=== PATIENT | female | born 1950 | race Caucasian/White ===

== ENCOUNTER 2018-11-18 12:06 | Emergency (ER) | payer OTHER ==
[~2018-11-18] VITALS: Ht 160 cm; Wt 130.4 kg
[~2018-11-18 12:06] MED LIST: COZ50 PO; LEVO0.114 PO; LOSA50TA66 PO; METF-350 PO; METF850T PO; [UNRECOGNIZED DRUG - CODE] PO
[2018-11-18 12:08] VITALS: BP 171/67
--- NOTE | 2018-11-18 12:11 | NUR ---
PT AMBULATES TO BED 8
--- NOTE | 2018-11-18 12:20 | NUR ---
Patient being evaluated by physician at bedside.
--- NOTE | 2018-11-18 12:29 | NUR ---
BIB FAMILY WITH C/O COUGH, SORE THROAT, DIFFICULTY SWALLOWING STARTED TODAY. UPON AUSCULTATION, LUNG SOUNDS CLEAR THROUGHOUT. THROUGH APPEARS RED, TONSILS SWOLLEN. PAIN STATED 8/10, DIFFICULT TO SWALLOW, SHARP PAIN. VSS; PATIENT POSITIONED FOR COMFORT; HOB ELEVATED; BEDRAILS UP X1; BED DOWN. ER MD MADE AWARE OF PT STATUS.
--- NOTE | 2018-11-18 13:10 | NUR ---
PATIENT RESTING AT THIS TIME; NO SIGNS OF DISTRESS.
[2018-11-18 13:30] VITALS: BP 167/71
--- NOTE | 2018-11-18 13:30 | NUR ---
Patient discharged with v/s stable. Written and verbal after care instructions given and explained. Patient alert, oriented and verbalized understanding of instructions. Ambulatory with steady gait. All questions addressed prior to discharge. ID band removed. Patient advised to follow up with PMD. Rx of PROMETHAZINE HYDROCHLORIDE 6.25MG, AMOXICILLIN 500MG AND TRAMADOL 50MG given. Patient educated on indication of medication including possible reaction and side effects. Opportunity to ask questions provided and answered.
== END 2018-11-18 13:30 | disposition home or self-care (01) ==
LOC: MED 12:06
DX: K12.2 Cellulitis and abscess of mouth (principal); E11.9 Type 2 diabetes mellitus without complications; I10 Essential (primary) hypertension; Z88.6 Allergy status to analgesic agent; Z88.5 Allergy status to narcotic agent; Z79.899 Other long term (current) drug therapy
CPT/HCPCS: 36415; 87081; 87804; 99283

== ENCOUNTER 2019-01-12 13:33 | Emergency (ER) | payer OTHER ==
[~2019-01-12] VITALS: Ht 160 cm; Wt 126.6 kg
[2019-01-12 13:58] VITALS: BP 148/78
--- NOTE | 2019-01-12 14:36 | NUR ---
PATIENT TAKEN TO ER BED 6 BY WHEELCHAIR
--- NOTE | 2019-01-12 14:40 | NUR ---
68Y/F BIB WITH C/O RIGHT FOOT PAIN SWELLING S/P FULL CONDITIONER BOTTLE FELL ONTO FOOT X 6 DAYS AGO, PT IS UNABLE TO BEAR WEIGHT, WHEELCHAIR ASSISTED TO BED, + BRUSING, + SWELLING, + REDNESS, < 3 CAP REFILL, FOOT ELEVATED AT THIS TIME, BED LOW, LOCKED, BEDRAIL UP X 1, ER MD AWARE AND NOTIFIED OF PT STATUS. HX: DM, HTN, THYROID, ARTHRITIS RX:METFORMIN, HCTZ, LEVOTHYROXINE, SIMVASTATIN
[2019-01-12] MEDS ORDERED: fentaNYL 0.05 MG/ML VIAL IM ONE (15:35)
[2019-01-12] MEDS ORDERED: CLINDAMYCIN 150 MG CAP PO ONE (15:35)
--- NOTE | 2019-01-12 16:12 | NUR ---
PT ACCEPTED CARLOS WRAP TO HER RIGHT ANKLE BUT DID NOT WANT CRUTCHES.
--- NOTE | 2019-01-12 16:23 | NUR ---
DR. SONG PRESCRIBE NORCO TO PT AND WAS ALREADY TOLD PT WAS ALLERGIC
[2019-01-12 16:26] VITALS: BP 134/73
--- NOTE | 2019-01-12 16:26 | NUR ---
Patient discharged with v/s stable. Written and verbal after care instructions given and explained. Patient alert, oriented and verbalized understanding of instructions. Ambulatory with steady gait. All questions addressed prior to discharge. ID band removed. Patient advised to follow up with PMD. Rx of norco and bactrium given. Patient educated on indication of medication including possible reaction and side effects. Opportunity to ask questions provided and answered.
== END 2019-01-12 16:26 | disposition home or self-care (01) ==
LOC: MED 13:33
DX: S97.81XA Crushing injury of right foot, initial encounter (principal); E11.9 Type 2 diabetes mellitus without complications; I10 Essential (primary) hypertension; E07.9 Disorder of thyroid, unspecified; Z79.84 Long term (current) use of oral hypoglycemic drugs; Z79.899 Other long term (current) drug therapy; Z88.5 Allergy status to narcotic agent; Z88.8 Allergy status to other drugs, medicaments and biological substances; W23.0XXA Caught, crushed, jammed, or pinched between moving objects, initial encounter; Y93.89 Activity, other specified; Y92.89 Other specified places as the place of occurrence of the external cause; Y99.8 Other external cause status
CPT/HCPCS: 73630; 96372; 99283; J3010

== ENCOUNTER 2019-02-04 18:24 | Emergency (ER) | payer OTHER ==
[~2019-02-04] VITALS: Ht 160 cm; Wt 131.5 kg
[2019-02-04 18:36] VITALS: BP 123/72
--- NOTE | 2019-02-04 19:18 | NUR ---
PT TRANSFERRED TO BED 11 VIA WHEELCHAIR.
--- NOTE | 2019-02-04 19:40 | NUR ---
DR. BUSTAMANTE AT BEDSIDE FOR EVALUATION.
[2019-02-04] MEDS ORDERED: traMADol 50 MG TAB PO ONE (20:05)
--- NOTE | 2019-02-04 20:15 | NUR ---
PT BIB C/O LEFT HIP PAIN. PT STATES SHE DROPPED A CAN ON HER RIGHT FOOT X1 MONTH AGO, IS CURRENTLY WEARING A BOOT. PT STATES SHE TRIPPED AND FELL ON HER LEFT HIP ON MONDAY. PT STATES 10/10 HIP PAIN, RADIATES THROUGTH BODY. DENIES TRAUMA TO HEAD, N/V/D, LOC, CP, OR SOB. AAOX4. EDEMA TO RIGHT FOOT, +1 PITTING, +ECHYMOSIS, PASSIVE ROM. LEFT HIP; NO REDNESS OR SWELLING AT THIS TIME, PASSIVE ROM. PEDIAL PULSES WNL, BL. PMH: DM, HTN
[2019-02-04 21:03] VITALS: BP 123/72
--- NOTE | 2019-02-04 21:03 | NUR ---
Patient discharged with v/s stable. Written and verbal after care instructions given and explained. Patient alert, oriented and verbalized understanding of instructions. Ambulatory with steady gait. All questions addressed prior to discharge. ID band removed. Patient advised to follow up with PMD. Rx of TRAMADOL, ROBAXIN WAS given. Patient educated on indication of medication including possible reaction and side effects. Opportunity to ask questions provided and answered.
== END 2019-02-04 21:03 | disposition home or self-care (01) ==
LOC: MED 18:24
DX: S90.31XA Contusion of right foot, initial encounter (principal); M54.40 Lumbago with sciatica, unspecified side; I10 Essential (primary) hypertension; E11.9 Type 2 diabetes mellitus without complications; E78.5 Hyperlipidemia, unspecified; Z88.6 Allergy status to analgesic agent; Z79.84 Long term (current) use of oral hypoglycemic drugs; Z79.899 Other long term (current) drug therapy; W20.8XXA Other cause of strike by thrown, projected or falling object, initial encounter; Y93.89 Activity, other specified; Y92.89 Other specified places as the place of occurrence of the external cause; Y99.8 Other external cause status
CPT/HCPCS: 72100; 73502; 99283

== ENCOUNTER 2019-06-04 09:18 | Emergency (ER) | payer OTHER ==
[~2019-06-04] VITALS: Ht 160 cm; Wt 127.0 kg
[2019-06-04 09:24] VITALS: BP 146/78
--- NOTE | 2019-06-04 09:34 | NUR ---
PATIENT WHEELCHAIR ASSISTED TO BED 2.
--- NOTE | 2019-06-04 09:35 | NUR ---
PATIENT PRESENTS TO ED WITH C/O BLOOD IN URINE AND LLQ "PRESSURE" ABDOMINAL PAIN X YESTERDAY. DENIES N/V/D. DENIES URINARY FREQUENCY/URGENCY/DRIBBLING. HX: KIDNEY STONES, HYSTERECTOMY, LAP BAND, HTN, DIABETES, HYPOTHYROID .PATIENT STATES PAIN OF 9/10 AT THIS TIME; VSS; PATIENT POSITIONED FOR COMFORT; HOB ELEVATED; BEDRAILS UP X2; BED DOWN. ER MD MADE AWARE OF PT STATUS.
[2019-06-04] MEDS ORDERED: LEVO0.124 PO (09:39)
[2019-06-04] MEDS ORDERED: METF500T PO (09:39)
[2019-06-04] MEDS ORDERED: PIOGLITAZONE PO (09:39)
[2019-06-04] MEDS ORDERED: SIMV20TA6 PO (09:41)
[2019-06-04] MEDS ORDERED: LOSA50TA66 PO (09:42)
--- NOTE | 2019-06-04 09:43 | NUR ---
Patient being evaluated by physician at bedside.
[2019-06-04] MEDS ORDERED: NACL 0.9% 1,000 ML IV ONE (09:50)
--- NOTE | 2019-06-04 09:57 | NUR ---
OFF UNIT FOR CT.
[2019-06-04] MEDS ORDERED: CYAN250013 PO (10:10)
[2019-06-04] MEDS ORDERED: VITD1000 PO (10:10)
[2019-06-04] MEDS ORDERED: TRAM50TA1 PO (10:10)
[2019-06-04] MEDS ORDERED: ORE25 PO (10:10)
[2019-06-04] MEDS ORDERED: LID5T TP (10:10)
--- NOTE | 2019-06-04 10:14 | NUR ---
PT IS BACK TO UNIT FROM CT, INSERTED IV LINE TO LEFT FOREARM, STARTED NS BOLUS, PT TOLERATED WELL.
[2019-06-04 10:21] LABS: BASOPHILS % (AUTO) 0.4 % (0.0-2.0); EOSINOPHILS # (AUTO) 0.3 K/uL (0-0.4); EOSINOPHILS % (AUTO) 4.1 % (0.0-4.0); HEMATOCRIT 37.7 % (36-48); HEMOGLOBIN 12.5 g/dL (12.0-16.0); LYMPHOCYTES # (AUTO) 1.6 K/uL (2.5-16.5); LYMPHOCYTES % (AUTO) 25.8 % (20.5-51.1); MEAN CORPUSCULAR HEMOGLOBIN 30 pg (27-31); MEAN CORPUSCULAR HGB CONC 33 g/dL (33-37); MEAN CORPUSCULAR VOLUME 90.1 fL (80-94); MONOCYTES # (AUTO) 0.3 K/uL (0.8-1.0); MONOCYTES % (AUTO) 5.4 % (1.7-9.3); NEUTROPHILS % (AUTO) 64.3 % (42.2-75.2); PLATELET COUNT (AUTO) 105 K/uL (140-450); RED BLOOD CELL COUNT(AUTO) 4.18 MIL/uL (4.20-5.40); RED CELL DISTRIBUTION WIDTH 13.7 % (11.6-13.7); WHITE BLOOD COUNT (AUTO) 6.2 K/uL (4.8-10.8)
[2019-06-04 10:28] LABS: ANION GAP 12.3 (8-16); CARBON DIOXIDE 26.4 mmol/L (21-32); CREATININE 1.1 mg/dL (0.6-1.3); POTASSIUM 3.7 mmol/L (3.5-5.1)
[2019-06-04 10:36] LABS: ALBUMIN 2.7 g/dL (3.4-5.0)
[2019-06-04 10:46] LABS: APPEARANCE,URINE CLOUDY (CLEAR); BILIRUBIN,URINE NEGATIVE (NEGATIVE); BLOOD, URINE 3+ (NEGATIVE); LEUKOCYTE ESTERASE ,URINE NEGATIVE (NEGATIVE); NITRITE, URINE NEGATIVE (NEGATIVE); UGLUCOSE 2+ (NEGATIVE)
[2019-06-04 10:52] LABS: COLOR,URINE AMBER (YELLOW)
[2019-06-04 10:53] LABS: RBC,URINE TOO NUMEROUS TO COUN /HPF (0-5); WBC,URINE NONE SEEN /HPF (0-5)
[2019-06-04] MEDS ORDERED: MORPHINE SULFATE 4 MG/ML SYR IVP ONE (10:55)
[2019-06-04] MEDS ORDERED: ONDANSETRON 4 MG/2 ML VIAL IVP ONE (10:55)
[2019-06-04 11:54] VITALS: BP 136/72
--- NOTE | 2019-06-04 11:54 | NUR ---
Patient discharged with v/s stable. Written and verbal after care instructions given and explained. IV SITE REMOVED. ID band removed. Rx of CEPHALEXIN, FLOMAX, TYLENOL WITH CODEINE given. Patient educated on indication of medication including possible reaction and side effects. Patient advised to follow up with PMD.
== END 2019-06-04 11:54 | disposition home or self-care (01) ==
LOC: MED 09:18
DX: R31.9 Hematuria, unspecified (principal); I10 Essential (primary) hypertension; E11.9 Type 2 diabetes mellitus without complications; Z88.6 Allergy status to analgesic agent; Z79.84 Long term (current) use of oral hypoglycemic drugs; Z79.899 Other long term (current) drug therapy; Z90.49 Acquired absence of other specified parts of digestive tract; Z90.710 Acquired absence of both cervix and uterus
CPT/HCPCS: 36415; 74176; 80053; 81001; 82948; 85025; 87086; 96374; 96375; 99284; J2270; J2405; J7030

== ENCOUNTER 2019-06-06 20:58 | Emergency (ER) | payer OTHER ==
[~2019-06-06] VITALS: Ht 160 cm; Wt 131.5 kg
[~2019-06-06 20:58] MED LIST changes: +CYAN250013 PO; +LEVO0.124 PO; +LID5T TP; +METF500T PO; +ORE25 PO; +PIOGLITAZONE PO; +SIMV20TA6 PO; +TRAM50TA1 PO; +VITD1000 PO
[2019-06-06 21:00] VITALS: BP 128/75
--- NOTE | 2019-06-06 21:00 | NUR ---
PATIENT BIB W/C TO ER BED 6.
--- NOTE | 2019-06-06 21:23 | NUR ---
68/F PRESENTS TO ED WITH FAMILY, C/O R HAND PAIN, S/P GETTING R HAND STUCK ON UNIT SECY 4 HRS AGO. R HAND SKIN INTACT PINK AND WARM, WITH SWELLING AND MILD BRUISING, CAP REFILL<3S, +SENSATION, DECREASED ROM DUE TO PAIN. AOX4, RR EVEN AND UNLABORED. HX DM, HYPOTHYROID, HTN
--- NOTE | 2019-06-06 21:24 | NUR ---
XRAY AT BEDSIDE FOR INTERVENTION.
--- NOTE | 2019-06-06 22:25 | NUR ---
Alice giang in [facility] - 06/06/[address] ZUNIGA AT [facility] FOR L HAND LAC REPAIR
--- NOTE | 2019-06-06 23:41 | NUR ---
PT LAYING IN BED, RR EVEN AND UNLABORED. REPORTS 4/10 R HAND PAIN. VSS. ALL NEEDS MET.
--- NOTE | 2019-06-06 23:41 | NUR ---
DR ZUNIGA AT BEDSIDE
--- NOTE | 2019-06-06 23:45 | NUR ---
PT R HAND WRAPPED IN CARLOS WRAP FOR COMFORT.
[2019-06-06 23:48] VITALS: BP 132/70
--- NOTE | 2019-06-06 23:48 | NUR ---
Patient discharged with v/s stable. Written and verbal after care instructions given and explained. Patient verbalized understanding. Ambulatory with steady gait, assisted by pt's to wheelchair to car. All questions addressed prior to discharge. Advised to follow up with PMD.
== END 2019-06-06 23:48 | disposition home or self-care (01) ==
LOC: MED 20:58
DX: S60.221A Contusion of right hand, initial encounter (principal); E11.9 Type 2 diabetes mellitus without complications; I10 Essential (primary) hypertension; E03.9 Hypothyroidism, unspecified; Z90.710 Acquired absence of both cervix and uterus; Z88.5 Allergy status to narcotic agent; Z88.6 Allergy status to analgesic agent; Z79.899 Other long term (current) drug therapy; Z79.84 Long term (current) use of oral hypoglycemic drugs; W23.1XXA Caught, crushed, jammed, or pinched between stationary objects, initial encounter; Y93.89 Activity, other specified; Y92.89 Other specified places as the place of occurrence of the external cause; Y99.8 Other external cause status
CPT/HCPCS: 73130; 99283; Q0092

== ENCOUNTER 2019-08-24 09:42 | Emergency (ER) | payer OTHER ==
[~2019-08-24] VITALS: Ht 160 cm; Wt 131.5 kg
[~2019-08-24 09:42] MED LIST changes: -COZ50 PO; -LEVO0.114 PO; -METF-350 PO; -METF850T PO; -[UNRECOGNIZED DRUG - CODE] PO
[2019-08-24 10:04] VITALS: BP 112/71
--- NOTE | 2019-08-24 10:15 | NUR ---
Alice giang in ED - 08/24/19 at 1027 by MMTHEM Patient ambulated to bed 10. RN evaluating patient at bedside.
--- NOTE | 2019-08-24 10:15 | NUR ---
Patient transferred to bed 10 via wheelchair, accompanied by family.
--- NOTE | 2019-08-24 10:24 | NUR ---
Dr. Patterson evaluating patient at bedside.
--- NOTE | 2019-08-24 10:30 | NUR ---
C/O BILATERAL LEG PAIN X3 WEEKS. PATIENT STATES PAIN OF 10/10 AT THIS TIME; VSS; PATIENT POSITIONED FOR COMFORT IN HER WHEELCHAIR; ER MD MADE AWARE OF PT STATUS.
--- NOTE | 2019-08-24 10:47 | NUR ---
Note claireone in EDM - 08/24/19 at 1048 by MED C/O BILATERAL LEG PAIN X3 WEEKS. PATIENT STATES PAIN OF 10/10 AT THIS TIME; VSS; PATIENT POSITIONED FOR COMFORT IN HER WHEELCHAIR; SANJU BISWAS MADE AWARE OF PT STATUS.
[2019-08-24 11:07] VITALS: BP 111/70
--- NOTE | 2019-08-24 11:07 | NUR ---
Patient discharged with v/s stable. Written and verbal after care instructions given and explained. Patient alert, oriented and verbalized understanding of instructions. Wheel Chair Assisted with to car BY FAMILY MEMBER. All questions addressed prior to discharge. ID band removed. Patient advised to follow up with PMD. Rx of VALIUM given. Patient educated on indication of medication including possible reaction and side effects. Opportunity to ask questions provided and answered.
== END 2019-08-24 11:07 | disposition home or self-care (01) ==
LOC: MED 09:42
DX: G89.29 Other chronic pain (principal); M25.562 Pain in left knee; E11.9 Type 2 diabetes mellitus without complications; I10 Essential (primary) hypertension; Z88.5 Allergy status to narcotic agent; Z88.8 Allergy status to other drugs, medicaments and biological substances; Z79.899 Other long term (current) drug therapy; Z79.84 Long term (current) use of oral hypoglycemic drugs
CPT/HCPCS: 99283

== ENCOUNTER 2020-02-04 22:29 | Emergency (ER) | payer OTHER ==
[~2020-02-04] VITALS: Ht 160 cm; Wt 127.0 kg
[2020-02-04 22:29] VITALS: BP 144/65
[~2020-02-04 22:29] MED LIST changes: +SIMV-30 PO; -SIMV20TA6 PO
--- NOTE | 2020-02-04 22:48 | NUR ---
Dr. Romano at bedside.
--- NOTE | 2020-02-04 22:48 | NUR ---
BIB family reports falling at home and catching herself with her left arm. +cms of arm wrist and shoulder with increased pain when moving. swelling seen to top of the right hand and tenderness reported on hand, wrist and elbow. Patient states no head injury or anywhere else. No other symptoms reported. AAO. Sitting up in bed.
[2020-02-04] MEDS ORDERED: fentaNYL 0.05 MG/ML VIAL IM ONE (22:50)
--- NOTE | 2020-02-04 22:54 | NUR ---
xray at bedside.
[2020-02-04 23:57] VITALS: BP 144/65
--- NOTE | 2020-02-04 23:57 | NUR ---
Patient discharged with v/s stable. Written and verbal after care instructions given and explained. Patient alert, oriented and verbalized understanding of instructions. wheelchair with to car. All questions addressed prior to discharge. ID band removed. Patient advised to follow up with PMD. Rx of naprosyn given. Patient educated on indication of medication including possible reaction and side effects. Opportunity to ask questions provided and answered.
== END 2020-02-04 23:57 | disposition home or self-care (01) ==
LOC: MED 22:29
DX: S53.402A Unspecified sprain of left elbow, initial encounter (principal); S63.502A Unspecified sprain of left wrist, initial encounter; E11.9 Type 2 diabetes mellitus without complications; I10 Essential (primary) hypertension; Z98.890 Other specified postprocedural states; Z90.710 Acquired absence of both cervix and uterus; Z79.84 Long term (current) use of oral hypoglycemic drugs; Z79.899 Other long term (current) drug therapy; Z88.5 Allergy status to narcotic agent; Z88.8 Allergy status to other drugs, medicaments and biological substances; W01.0XXA Fall on same level from slipping, tripping and stumbling without subsequent striking against object, initial encounter; Y93.89 Activity, other specified; Y92.89 Other specified places as the place of occurrence of the external cause; Y99.8 Other external cause status
CPT/HCPCS: 73080; 73110; 96372; 99284; J3010; Q0092

== ENCOUNTER 2020-10-21 22:28 | Observation (INO) | payer OTHER, SELFPAY ==
[~2020-10-21] VITALS: Ht 160 cm; Wt 136.1 kg
[2020-10-21 22:46] VITALS: BP 154/78
--- NOTE | 2020-10-21 22:58 | NUR ---
PT WAS W/C OUT TO THE LOBBY BY HER UNTIL A BED IN THE ER BECOMES AVAILABLE. PT IS NOT IN ACUTE DISTRESS. VSS.
--- NOTE | 2020-10-22 00:15 | NUR ---
PT BROUGHT TO [facility] FOR LAB DRAW
[2020-10-22 00:39] LABS: BASOPHILS % (AUTO) 0.4 % (0.0-2.0); EOSINOPHILS # (AUTO) 0.2 K/uL (0-0.4); EOSINOPHILS % (AUTO) 3.4 % (0.0-4.0); HEMATOCRIT 39.1 % (36-48); LYMPHOCYTES # (AUTO) 1.5 K/uL (2.5-16.5); LYMPHOCYTES % (AUTO) 20.4 % (20.5-51.1); MEAN CORPUSCULAR HEMOGLOBIN 30 pg (27-31); MEAN CORPUSCULAR HGB CONC 33 g/dL (33-37); MEAN CORPUSCULAR VOLUME 90.4 fL (80-94); MONOCYTES # (AUTO) 0.5 K/uL (0.8-1.0); MONOCYTES % (AUTO) 7.5 % (1.7-9.3); NEUTROPHILS # (AUTO) 4.9 K/uL (1.8-7.7); NEUTROPHILS % (AUTO) 68.3 % (42.2-75.2); PLATELET COUNT (AUTO) 106 K/uL (140-450); RED BLOOD CELL COUNT(AUTO) 4.32 MIL/uL (4.20-5.40); RED CELL DISTRIBUTION WIDTH 14.6 % (11.6-13.7); WHITE BLOOD COUNT (AUTO) 7.1 K/uL (4.8-10.8)
--- NOTE | 2020-10-22 00:50 | NUR ---
PT TAKEN TO ER BED 3 W/ STEADY GAIT.
--- NOTE | 2020-10-22 00:50 | NUR ---
Alice giang in ED - 10/22/20 at 0053 by BABITA PT TAKEN TO ER BED 3 W/ STEADY GAIT.
--- NOTE | 2020-10-22 00:50 | NUR ---
PT TAKEN TO ER BED 3 VIA W/C
[2020-10-22 00:58] LABS: ALBUMIN 3.2 g/dL (3.4-5.0); CARBON DIOXIDE 26.9 mmol/L (21-32); CREATININE 1.8 mg/dL (0.6-1.3); POTASSIUM 3.9 mmol/L (3.5-5.1); TOTAL BILIRUBIN 1.4 mg/dL (0.0-1.0)
--- NOTE | 2020-10-22 00:58 | NUR ---
70 Y/O FEMALE BIB SELF WITH C/O 09/05 "SHARP" NON-RADIATING LOWER ABD/MID-LINE PELVIC PAIN. PT ALSO REPORTS BLOOD ON URINATION THAT STARTED ON MONDAY WITH A "SMALL AMOUNT" ON URINATION. REPORTS SHE HAD NO URINATION ON MONDAY OR MONDAY BUT REPORTS HAVING HEAVY BLEEDING THIS EVENING THAT BEGAN AT 2100. ABDOMEN WAS ROUND, SOFT AND NON-TENDER. BOWEL SOUNDS WERE ACTIVE X 4 QUADRANTS. SECONDARY C/O CANS FALLING ON L LEG THIS MORNING. DENIES HAVING ANY PAIN AT THIS TIME. BUT REPORTED HAVING MINOR PAIN AT SITE THIS MORNING. REPORTS NOT TAKING ANY OTC MEDS FOR PAIN. BED WAS LOCKED AND PLACED IN LOWEST POSITION. HOB WAS ELEVATED FOR COMFORT. PHMX: HYSTERECTOMY, DM TYPE 2, HTN, KIDNEY STONES, ROTATOR CUFF REPAIR ALLERGIES: LISINOPRIL, OXYCODONE, HYDRO-CODONE, AND RASBERRIES.
[2020-10-22 01:28] LABS: APPEARANCE,URINE CLOUDY (CLEAR); BILIRUBIN,URINE NEGATIVE (NEGATIVE); BLOOD, URINE 3+ (NEGATIVE); COLOR,URINE ORANGE (YELLOW); LEUKOCYTE ESTERASE ,URINE TRACE (NEGATIVE); NITRITE, URINE NEGATIVE (NEGATIVE); UGLUCOSE 3+ (NEGATIVE)
--- NOTE | 2020-10-22 01:30 | NUR ---
SANJU BISWAS AT BEDSIDE EVALUATING PT.
[2020-10-22 02:13] LABS: RBC,URINE TOO NUMEROUS TO COUN /HPF (0-5)
[2020-10-22 02:14] LABS: WBC,URINE 0-5 /HPF (0-5)
[2020-10-22] MEDS ORDERED: NACL 0.9% 1,000 ML IV ONE (02:15)
[2020-10-22] MEDS ORDERED: cefTRIAXone 1,000 MG VIAL ONE (02:19)
--- NOTE | 2020-10-22 02:22 | NUR ---
SANJU BISWAS AT BEDSIDE RE-EVALUATING PT.
--- NOTE | 2020-10-22 02:44 | NUR ---
IV SITE ESTABLISHED TO R FOREARM 20 G SITE WAS PATENT. FLUSHED WITH 10 ML OF 0.9% NS, NO INFILTRATION, REDNESS OR SWELLING NOTED.
--- NOTE | 2020-10-22 04:32 | NUR ---
LABS WERE DRAWN AND SENT TO LAB.
--- NOTE | 2020-10-22 04:33 | NUR ---
PT LAYING IN BED, IN NO ACUTE DISTRESS NOTED. RESPIRATIONS WERE EVEN AND UNLABORED. NO C/O PAIN OR DISCOMFORT AT THIS TIME. IVF FLUIDS FINISHED. CONTINUES ON CARDIAC, BP AND PULSE OXIMETRY MONITORING. PT WAS ASSISTED TO A COMFORTABLE POSITION FOR COMFORT. BED LOCKED AND PLACED IN LOWEST POSITION.
[2020-10-22 04:45] LABS: ANION GAP 13.5 (8-16); CARBON DIOXIDE 26.1 mmol/L (21-32); CREATININE 1.7 mg/dL (0.6-1.3); POTASSIUM 3.6 mmol/L (3.5-5.1)
--- NOTE | 2020-10-22 05:43 | NUR ---
PT WOULD LIKE AN UPDATE - HE WAS MADE AWARE THAT THE PT WILL BE ADMITTED AT THIS TIME BUT WOULD LIKE MORE INFORMATION. KARYN CORNEJO () [phone]
--- NOTE | 2020-10-22 06:00 | NUR ---
PROVIDED KARYN CORNEJO WITH AN UPDATE ON PTS CONDITION WITH PT'S VERBAL CONSENT TO REALESE ALL INFORMATION TO (KARYN CORNEJO).
--- NOTE | 2020-10-22 07:19 | NUR ---
Gave report to Loreto VARGAS for continuity of care.
--- NOTE | 2020-10-22 07:21 | NUR ---
TRANSFER OF CARE AT THIS TIME FORM SAM JHA
--- NOTE | 2020-10-22 07:31 | NUR ---
VS WNL, ALL NEEDS MET AT THIS TIME.
[2020-10-22] MEDS ORDERED: ACETAMINOPHEN 325 MG TAB PO PRN (08:25)
[2020-10-22] MEDS ORDERED: DEXTROSE 50% 50 ML SYR IVP PRN (08:25)
[2020-10-22] MEDS: NACL 0.9% 1,000 ML IV SCH ×2 (08:41→18:31)
--- NOTE | 2020-10-22 08:59 | NUR ---
CALLED SAM SOTELO FOR REPORT, NO ANSWER.
--- NOTE | 2020-10-22 09:07 | NUR ---
CALLED ASHLEIGH AT EXT [phone] TO GIVE REPORT.
--- NOTE | 2020-10-22 09:16 | NUR ---
Patient will be admitted to care of DR. MUIR. Admited to Med/Surg. Will go to room 105B. Belongings list completed. Report to SAM SOTELO.
[2020-10-22 09:30] VITALS: BP 142/67
--- NOTE | 2020-10-22 09:35 | NUR ---
RECEIVED REPORT FROM ED NURSE, NIEVES. PATIENT ARRIVED TO UNIT VIA PT WHEELCHAIR. PATIENT AWAKE, ALERT, ORIENTED X4. RESP EVEN AND UNLABORED ON ROOM AIR. DENIED OF PAIN AT THIS TIME. LUNGS CLEAR. SKIN WARM TO TOUCH AND INTACT. R UPPER FOREARM 20G INTACT AND PATENT, INFUSING NS 100 ML/HR. PATIENT ABLE TO AMBULATE TO THE BATHROOM WITH STANDBY ASSIST AND STEADY GAIT. PATIENT ENCOURAGED TO USE CALL LIGHT NEEDED FOR ASSIST. DX WITH VERONIKA AND HEMATURIA. PATIENT STATED VERY LITTLE OF BLOOD NOTED IN THE URINE EARLIER. MRSA COLLECTED. PATIENT WANTS PNEUMO AND FLU VACC PRIOR TO D/C. PLAN OF CARE DISCUSSED WITH PATIENT. PATIENT VERBALIZED UNDERSTANDING. CALL LIGHT WITHIN REACH. WILL CONTINUE TO MONITOR.
[2020-10-22 11:02] LABS: PROTHROMBIN TIME 10.7 secs (10.8-13.4)
--- NOTE | 2020-10-22 11:10 | NUR ---
PATIENT IN BED RESTING. AWAKE AND ALERT. DENIED OF PAIN OR ANY SOB AT THIS TIME. CALL LIGHT WITHIN REACH. WILL CONTINUE TO MONITOR.
[2020-10-22] MEDS: BLOOD GLUCOSE MONITORING 1 DEV DEV FS SCH ×3 (12:18→20:42)
--- NOTE | 2020-10-22 15:09 | NUR ---
PATIENT WENT TO RAD FOR CT ABD/PELVIS. PATIENT LEFT IN STABLE CONDITION.
--- NOTE | 2020-10-22 15:18 | NUR ---
PATIENT CAME BACK FROM CT IN GOOD SPIRIT. ABLE TO MAKE NEEDS KNOWN. ASSISTED PATIENT TO THE BATHROOM. NO REPORT OF ANY BLOOD IN THE URINE. URINE IS YELLOW AND CLEAR. DENIED OF PAIN AT THIS TIME. RESP EVEN AND UNLABORED ON ROOM AIR. CALL LIGHT WITHIN REACH. WILL CONTINUE TO MONITOR.
[2020-10-22 16:00] VITALS: BP 138/51
--- NOTE | 2020-10-22 16:54 | NUR ---
PATIENT AWAKE AND ALERT IN BED KNITTING A SCARF. PATIENT IN GOOD SPIRIT. DENIED OF ANY MORE BLOOD IN THE URINE. NO NOTED DISTRESS AT THIS TIME. CALL LIGHT WITHIN REACH. WILL CONTINUE TO MONITOR.
--- NOTE | 2020-10-22 17:58 | NUR ---
BLOOD GLUCOSE 147. NO INSULIN COVERAGE NEEDED PER SLIDING SCALE. PATIENT IN BED RESTING. RESP EVEN AND UNLABORED ON ROOM AIR. DENIED OF PAIN. ABLE TO MAKE NEEDS KNOWN. CALL LIGHT WITHIN REACH. WILL CONTINUE TO MONITOR.
--- NOTE | 2020-10-22 19:25 | NUR ---
ENDORSED PATIENT TO NIGHT NURSE. PATIENT IN STABLE CONDITION.
--- NOTE | 2020-10-22 19:26 | NUR ---
RECEIVED REPORT FROM RADHA RNASHLEIGH. PT AOX4 ON ROOM AIR. NO S/S RESPIRATORY DISTRESS. NO C/O PAIN AT THIS TIME. IV SITE RFA 20G, PATENT AND INTACT, INFUSING NS AT 100ML/HR. SAFETY MEASURES IN PLACE. CALL LIGHT WITHIN REACH. WILL CONTINUE TO MONITOR
[2020-10-22 20:00] VITALS: BP 123/81
--- NOTE | 2020-10-22 20:48 | NUR ---
ADMINISTERED SCHEDULED MED. PT TOLERATED WELL. PT BLOOD SUGAR 150, NO INSULIN COVERAGE NEEDED. WILL CONTINUE TO MONITOR
[2020-10-22] MEDS ORDERED: SIMVASTATIN 20 MG TAB PO SCH (21:00)
--- NOTE | 2020-10-22 22:44 | NUR ---
PT AMBULATED TO TOILET AND BACK TO BED WITH STANDBY ASSIST. TOLERATED WELL, NO DISTRESS NOTED. PT STATED SHE VOIDED CLEAR URINE. WILL CONTINUE TO MONITOR
--- NOTE | 2020-10-23 00:30 | NUR ---
PT ASLEEP IN BED. RESPIRATIONS EVEN AND UNLABORED. NO DISTRESS NOTED. WILL CONTINUE TO MONITOR
--- NOTE | 2020-10-23 02:17 | NUR ---
PT AMBULATED TO TOILET AND BACK TO BED WITH STANDBY ASSIST. TOLERATED WELL. WILL CONTINUE TO MONITOR
[2020-10-23 04:00] VITALS: BP 133/65
[2020-10-23] MEDS: NACL 0.9% 1,000 ML IV SCH ×2 (04:25→04:35)
[2020-10-23] MEDS: BLOOD GLUCOSE MONITORING 1 DEV DEV FS SCH ×2 (05:40→12:16)
[2020-10-23] MEDS: INSULIN LISPRO SLIDING SCALE 100 UNITS/ML VIAL SUBQ PRN ×2 (05:59→12:16)
--- NOTE | 2020-10-23 06:03 | NUR ---
ADMINISTERED 2 UNITS INSULIN PER SLIDING SCALE FOR PT BLOOD SUGAR 158. TOLERATED WELL. WILL CONTINUE TO MONITOR
[2020-10-23 06:20] LABS: BASOPHILS % (AUTO) 0.6 % (0.0-2.0); EOSINOPHILS # (AUTO) 0.2 K/uL (0-0.4); EOSINOPHILS % (AUTO) 3.9 % (0.0-4.0); HEMATOCRIT 33.8 % (36-48); HEMOGLOBIN 11.8 g/dL (12.0-16.0); LYMPHOCYTES # (AUTO) 1.5 K/uL (2.5-16.5); LYMPHOCYTES % (AUTO) 28.5 % (20.5-51.1); MEAN CORPUSCULAR HEMOGLOBIN 32 pg (27-31); MEAN CORPUSCULAR HGB CONC 35 g/dL (33-37); MEAN CORPUSCULAR VOLUME 90.5 fL (80-94); MONOCYTES # (AUTO) 0.3 K/uL (0.8-1.0); MONOCYTES % (AUTO) 6.1 % (1.7-9.3); NEUTROPHILS # (AUTO) 3.1 K/uL (1.8-7.7); NEUTROPHILS % (AUTO) 60.9 % (42.2-75.2); PLATELET COUNT (AUTO) 90 K/uL (140-450); RED BLOOD CELL COUNT(AUTO) 3.74 MIL/uL (4.20-5.40); RED CELL DISTRIBUTION WIDTH 14.5 % (11.6-13.7); WHITE BLOOD COUNT (AUTO) 5.1 K/uL (4.8-10.8)
[2020-10-23] MEDS ORDERED: LEVOTHYROXINE 0.025 MG TAB PO SCH (06:30)
--- NOTE | 2020-10-23 07:10 | NUR ---
ENDORSED PT TO DAY RN FOR CONTINUITY OF CARE. PT IS IN STABLE CONDITION
--- NOTE | 2020-10-23 07:10 | NUR ---
RECEIVED REPORT FROM NIGHT NURSE FOR CONTINUITY OF CARE, PT IS STABLE, PT AAOX4, INTRODUCE SELF, PT HAS RIGHT FA 20G INFUSING NORMAL SALINE AT 100 ML/H, NO SIGNS OF DISTRESS NOTED, CALL LIGHT WITHIN REACH, WILL CONTINUE TO MONITOR.
[2020-10-23 07:27] LABS: ALBUMIN 2.7 g/dL (3.4-5.0); ANION GAP 11.5 (8-16); CREATININE 1.2 mg/dL (0.6-1.3); POTASSIUM 3.5 mmol/L (3.5-5.1); TOTAL BILIRUBIN 1.3 mg/dL (0.0-1.0)
--- NOTE | 2020-10-23 07:47 | NUR ---
PATIENT HAS BEEN SCREENED AND CATEGORIZED HIGH NUTRITION RISK. PATIENT WILL BE SEEN WITHIN 1-2 DAYS OF ADMISSION. 10/23/20 10/24/[address]
[2020-10-23 08:00] VITALS: BP 140/71
--- NOTE | 2020-10-23 11:30 | NUR ---
PT RESTING IN BED, NO SIGNS OF DISTRESS NOTED, RESPIRATIONS ARE EVEN AND UNLABORED, PT IS STABLE, CALL LIGHT WITHIN REACH, WILL CONTINUE TO MONITOR.
--- NOTE | 2020-10-23 12:16 | NUR ---
ADMINISTERED 2 UNITS OF HUMALOG FOR BLOOD GLUCOSE OF 173, MEDICATION EDUCATION PROVIDED, PT TOLERATED WELL, PT IS STABLE, WILL CONTINUE TO MONITOR.
--- NOTE | 2020-10-23 12:29 | NUR ---
10/23/20 RD INITIAL ASSESSMENT COMPLETED PLEASE REFER TO NUTRITION ASSESSMENT UNDER CARE ACTIVITY FOR ESTIMATED NUTRITIONAL NEEDS. 1. RECOMMEND RENAL, CCHO 60 GM DIET 2. IF PO INTAKE CONTINUES <75% CONSIDER GLUCERNA TID 3. DIET EDUCATION FOR KIDNEY STONES AND DM 4. RD TO FOLLOW-UP 2-3 DAYS, HIGH RISK JABIER PECK, RD
--- NOTE | 2020-10-23 14:40 | NUR ---
DISCHARGED INSTRUCTIONS GIVEN, PT VERBALIZED UNDERSTANDING, IV REMOVED AND INTACT, PT WHEELED OUT TO CAR, PT STABLE, PT REFUSED FLU AND PNA VACCINE.
[2020-10-24 06:07] LABS: HEPATITIS B SURFACE ANTIBODY Non Reactive (.); HEPATITIS B SURFACE ANTIGEN Negative (Negative)
[2020-10-24] MEDS ORDERED: LOSARTAN 50 MG TAB PO SCH (09:00)
== END 2020-10-23 14:40 | disposition home or self-care (01) ==
LOC: MED 22:28 → MTU 10-22 08:26
PROVIDERS: ADMIT Internal Medicine; ATTEND Internal Medicine
DX: R31.0 Gross hematuria (principal); Z20.828 Contact with and (suspected) exposure to other viral communicable diseases; I12.9 Hypertensive chronic kidney disease with stage 1 through stage 4 chronic kidney disease, or unspecified chronic kidney disease; E11.22 Type 2 diabetes mellitus with diabetic chronic kidney disease; N18.30 Chronic kidney disease, stage 3 unspecified; N17.9 Acute kidney failure, unspecified; N20.0 Calculus of kidney; E66.01 Morbid (severe) obesity due to excess calories; Z79.4 Long term (current) use of insulin; Z79.899 Other long term (current) drug therapy
CPT/HCPCS: 36415; 74176; 80048; 80053; 81001; 82150; 82948; 83690; 85610; 86706; 86803; 87081; 87340; 87426; 96361; 96365; 96372; 99285; G0378; J0696; 85025

== ENCOUNTER 2021-04-03 01:56 | Emergency (ER) | payer OTHER, SELFPAY ==
[~2021-04-03] VITALS: Ht 160 cm; Wt 136.1 kg
[~2021-04-03 01:56] MED LIST changes: +HYDR-4004 PO; -ORE25 PO
[2021-04-03 02:11] VITALS: BP 158/69
--- NOTE | 2021-04-03 02:13 | NUR ---
to lobby a/w bed via w/c
--- NOTE | 2021-04-03 02:38 | NUR ---
BIB WHEELCHAIR TO ER BED 8 FROM X-RAY
--- NOTE | 2021-04-03 03:29 | NUR ---
RECEIVED IN BED 8 WITH C/O LEFT HAND PAIN X 4 DAYS WITH DECREASED R.OM. DENIES TRAUMA. HAND IS WARM AND DRY, RADIAL PULSE STRONG, CAP REFILL RAPID PMH: DM, HTN, THYROID ALLERGIES : HYDROCODONE, IBUPROFEN, LISINOPRIL
[2021-04-03] MEDS ORDERED: KETOROLAC 15 MG/ML VIAL IM ONE (03:35)
[2021-04-03] MEDS ORDERED: GABA-636 PO (04:01)
[2021-04-03 04:10] VITALS: BP 136/76
--- NOTE | 2021-04-03 04:10 | NUR ---
d/c with vss. d/c education given. opportunity to ask questions given and answered rx of gabapentin given. NAD
== END 2021-04-03 04:10 | disposition home or self-care (01) ==
LOC: MED 01:56
DX: M25.532 Pain in left wrist (principal); E11.9 Type 2 diabetes mellitus without complications; I10 Essential (primary) hypertension; Z87.448 Personal history of other diseases of urinary system; Z88.5 Allergy status to narcotic agent; Z88.6 Allergy status to analgesic agent; Z88.8 Allergy status to other drugs, medicaments and biological substances; Z79.899 Other long term (current) drug therapy; Z79.84 Long term (current) use of oral hypoglycemic drugs
CPT/HCPCS: 73140; 96372; 99283; J1885

== ENCOUNTER 2022-11-18 11:40 | Emergency (ER) | payer OTHER ==
[~2022-11-18] VITALS: Ht 160 cm; Wt 140.6 kg
[~2022-11-18 11:40] MED LIST changes: +CHOL100084 PO; +GABA-636 PO; +METF-346 PO; -METF500T PO; +TRAM-748 PO; -TRAM50TA1 PO; -VITD1000 PO
[2022-11-18 11:50] VITALS: BP 116/63
--- NOTE | 2022-11-18 11:52 | NUR ---
PT WHEELCHAIR ASSISTED TO BED 11
[2022-11-18] MEDS ORDERED: MORPHINE SULFATE 4 MG/ML SYR IM ONE (12:10)
[2022-11-18] MEDS ORDERED: ACET-8905 PO (12:14)
[2022-11-18 12:35] LABS: APPEARANCE,URINE CLEAR (CLEAR); BILIRUBIN,URINE NEGATIVE (NEGATIVE); BLOOD, URINE TRACE-I (NEGATIVE); COLOR,URINE YELLOW (YELLOW); LEUKOCYTE ESTERASE ,URINE NEGATIVE (NEGATIVE); NITRITE, URINE NEGATIVE (NEGATIVE); PH,URINE 6.5 (5.0-9.0); UGLUCOSE NEGATIVE (NEGATIVE)
[2022-11-18 12:46] LABS: WBC,URINE 0-5 /HPF (0-5)
[2022-11-18 12:48] LABS: OTHER CASTS, URINE None Seen /LPF (None Seen)
--- NOTE | 2022-11-18 13:19 | NUR ---
Patient discharged with v/s stable. Written and verbal after care instructions given and explained. Patient alert, oriented and verbalized understanding of instructions. Wheel Chair Assisted with steady gait. All questions addressed prior to discharge. ID band removed. Patient advised to follow up with PMD. Rx of NORCO given. Patient educated on indication of medication including possible reaction and side effects. Opportunity to ask questions provided and answered.
== END 2022-11-18 13:18 | disposition home or self-care (01) ==
LOC: MED 11:40
DX: M54.50 Low back pain, unspecified (principal); E11.9 Type 2 diabetes mellitus without complications; I10 Essential (primary) hypertension; N20.0 Calculus of kidney; Z79.1 Long term (current) use of non-steroidal anti-inflammatories (NSAID); Z88.5 Allergy status to narcotic agent; Z88.8 Allergy status to other drugs, medicaments and biological substances
CPT/HCPCS: 81001; 96372; 99284; J2270

== ENCOUNTER 2022-11-21 14:34 | Emergency (ER) | payer OTHER ==
[~2022-11-21] VITALS: Ht 160 cm; Wt 130.2 kg
[~2022-11-21 14:34] MED LIST changes: +ACET-8905 PO
[2022-11-21 15:01] VITALS: BP 145/67
[2022-11-21 18:12] LABS: APPEARANCE,URINE SL CLOUDY (CLEAR); BILIRUBIN,URINE NEGATIVE (NEGATIVE); BLOOD, URINE NEGATIVE (NEGATIVE); COLOR,URINE YELLOW (YELLOW); LEUKOCYTE ESTERASE ,URINE NEGATIVE (NEGATIVE); NITRITE, URINE NEGATIVE (NEGATIVE); UGLUCOSE NEGATIVE (NEGATIVE)
[2022-11-21] MEDS ORDERED: LID5T TP (19:20)
[2022-11-21] MEDS ORDERED: TRAM50TA3 PO ×2 (19:49→20:36)
[2022-11-21 20:01] VITALS: BP 145/67
--- NOTE | 2022-11-21 20:01 | NUR ---
Patient discharged with v/s stable. Written and verbal after care instructions given and explained. Patient alert, oriented and verbalized understanding of instructions. Wheel Chair Assisted with to car. All questions addressed prior to discharge. ID band removed. Patient advised to follow up with PMD. Rx of LIDODERM given. Patient educated on indication of medication including possible reaction and side effects. Opportunity to ask questions provided and answered.
== END 2022-11-21 20:01 | disposition home or self-care (01) ==
LOC: MED 14:34
DX: M47.816 Spondylosis without myelopathy or radiculopathy, lumbar region (principal); E11.9 Type 2 diabetes mellitus without complications; N20.0 Calculus of kidney; I10 Essential (primary) hypertension; Z79.4 Long term (current) use of insulin; Z79.84 Long term (current) use of oral hypoglycemic drugs; Z79.899 Other long term (current) drug therapy; Z79.1 Long term (current) use of non-steroidal anti-inflammatories (NSAID); Z88.8 Allergy status to other drugs, medicaments and biological substances
CPT/HCPCS: 81003; 99284

== ENCOUNTER 2023-02-28 12:02 | Emergency (ER) | payer OTHER ==
[~2023-02-28] VITALS: Ht 160 cm; Wt 131.5 kg
[~2023-02-28 12:02] MED LIST changes: -TRAM-748 PO; +TRAM50TA3 PO
[2023-02-28 12:07] VITALS: BP 145/71
--- NOTE | 2023-02-28 12:20 | NUR ---
PT W/C ASSISTED TO ER BED 8
[2023-02-28 14:45] VITALS: BP 145/71
--- NOTE | 2023-02-28 14:45 | NUR ---
Patient discharged with v/s stable. Written and verbal after care instructions given and explained. Patient verbalized understanding. Wheel Chair Assisted by . All questions addressed prior to discharge. Advised to follow up with PMD.
== END 2023-02-28 14:45 | disposition home or self-care (01) ==
LOC: MED 12:02
DX: R60.9 Edema, unspecified (principal); M25.512 Pain in left shoulder; E11.9 Type 2 diabetes mellitus without complications; I10 Essential (primary) hypertension; N18.9 Chronic kidney disease, unspecified; Z88.5 Allergy status to narcotic agent; Z88.8 Allergy status to other drugs, medicaments and biological substances; Z79.4 Long term (current) use of insulin; Z79.899 Other long term (current) drug therapy
CPT/HCPCS: 93971; 99284; Q0092

== ENCOUNTER 2023-06-08 14:28 | Emergency (ER) | payer OTHER ==
[~2023-06-08] VITALS: Ht 160 cm; Wt 131.5 kg
[2023-06-08 14:52] VITALS: BP 101/45; PULSE 102; RESP 20; TEMP 97.7; O2SAT 94
--- NOTE | 2023-06-08 15:00 | NUR ---
PT W/C ASSISTED TO BED 9
--- NOTE | 2023-06-08 15:08 | NUR ---
MD MANNING AT BEDSIDE FOR EVALUATION
--- NOTE | 2023-06-08 15:40 | NUR ---
xray at bedside
[2023-06-08 16:57] VITALS: BP 112/45; PULSE 88; RESP 20; TEMP 97.7
[2023-06-08 16:59] VITALS: O2SAT 97
--- NOTE | 2023-06-08 17:00 | NUR ---
The patient's care was reviewed and supervised by [facility] ED, RN.
--- NOTE | 2023-06-08 17:00 | NUR ---
Patient discharged with v/s stable. Written and verbal after care instructions FOR SHOULDER SPRAIN AND HAND CONTUSION given and explained. Patient verbalized understanding. Wheel Chair Assisted with to car. All questions addressed prior to discharge. Advised to follow up with PMD.
== END 2023-06-08 17:00 | disposition home or self-care (01) ==
LOC: MED 14:28
DX: S43.402A Unspecified sprain of left shoulder joint, initial encounter (principal); S60.222A Contusion of left hand, initial encounter; E11.9 Type 2 diabetes mellitus without complications; I10 Essential (primary) hypertension; Z98.890 Other specified postprocedural states; Z86.39 Personal history of other endocrine, nutritional and metabolic disease; Z87.448 Personal history of other diseases of urinary system; Z79.899 Other long term (current) drug therapy; Z88.8 Allergy status to other drugs, medicaments and biological substances; Z88.5 Allergy status to narcotic agent; Z91.018 Allergy to other foods; W01.198A Fall on same level from slipping, tripping and stumbling with subsequent striking against other object, initial encounter; Y92.89 Other specified places as the place of occurrence of the external cause; Y93.89 Activity, other specified; Y99.8 Other external cause status
CPT/HCPCS: 73030; 73060; 73130; 99284; Q0092

== ENCOUNTER 2023-08-02 09:22 | Emergency (ER) | payer OTHER ==
[~2023-08-02] VITALS: Ht 160 cm; Wt 131.5 kg
[2023-08-02 09:40] VITALS: BP 135/59; PULSE 88; RESP 19; TEMP 98; O2SAT 99
[2023-08-02 11:12] LABS: BASOPHILS % (AUTO) 0.4 % (0.0-2.0); EOSINOPHILS # (AUTO) 0.3 K/uL (0-0.4); EOSINOPHILS % (AUTO) 5.1 % (0.0-4.0); HEMATOCRIT 32.3 % (36-48); LYMPHOCYTES # (AUTO) 1.6 K/uL (2.5-16.5); LYMPHOCYTES % (AUTO) 31.3 % (20.5-51.1); MEAN CORPUSCULAR HEMOGLOBIN 33 pg (27-31); MEAN CORPUSCULAR HGB CONC 34 g/dL (33-37); MEAN CORPUSCULAR VOLUME 96.4 fL (80-94); MONOCYTES # (AUTO) 0.5 K/uL (0.8-1.0); MONOCYTES % (AUTO) 9.6 % (1.7-9.3); NEUTROPHILS # (AUTO) 2.7 K/uL (1.8-7.7); NEUTROPHILS % (AUTO) 53.6 % (42.2-75.2); PLATELET COUNT (AUTO) 70 K/uL (140-450); RED BLOOD CELL COUNT(AUTO) 3.35 MIL/uL (4.20-5.40); RED CELL DISTRIBUTION WIDTH 14.9 % (11.6-13.7); WHITE BLOOD COUNT (AUTO) 5.1 K/uL (4.8-10.8)
[2023-08-02 11:41] LABS: ALBUMIN 2.7 g/dL (3.4-5.0); ANION GAP 8.8 (8-16); CARBON DIOXIDE 30.1 mmol/L (21-32); CREATININE 1.4 mg/dL (0.6-1.3); POTASSIUM 3.9 mmol/L (3.5-5.1); TOTAL BILIRUBIN 1.5 mg/dL (0.0-1.0); TOTAL PROTEIN, SERUM 6.5 g/dL (6.4-8.2)
[2023-08-02] MEDS ORDERED: FURO-570 PO (12:19)
[2023-08-02 12:45] VITALS: BP 104/50; PULSE 92; RESP 18; TEMP 98.3; O2SAT 96
== END 2023-08-02 12:45 | disposition home or self-care (01) ==
LOC: MED 09:22
DX: I87.8 Other specified disorders of veins (principal); E11.9 Type 2 diabetes mellitus without complications; I10 Essential (primary) hypertension; E07.9 Disorder of thyroid, unspecified; Z88.5 Allergy status to narcotic agent; Z88.6 Allergy status to analgesic agent; Z88.8 Allergy status to other drugs, medicaments and biological substances; Z79.899 Other long term (current) drug therapy
CPT/HCPCS: 36415; 71045; 80053; 83880; 84484; 85025; 93005; 99285